=== PATIENT | female | born 1990 | race Caucasian/White ===

== ENCOUNTER 2017-07-04 11:15 | Emergency (ER) | payer MEDICAID, OTHER ==
[2017-07-04 11:51] VITALS: BP 149/68; PULSE 70; RESP 18; TEMP 98; O2SAT 98
--- NOTE | 2017-07-04 13:30 | ED PDOC ---
Upper Extremity Pain/Injury Time Seen by Provider: 07/04/17 12:35 Chief Complaint (Nursing): Upper Extremity Problem/Injury Chief Complaint (Provider): Left Wrist Pain History Per: Patient History/Exam Limitations: no limitations Onset/Duration Of Symptoms: Days (x3) Current Symptoms Are (Timing): Still Present Quality: "Pain" Exacerbating Factor(s): Movement Additional Complaint(s): 27 year old female presents of the ED complaining of left wrist pain x3 days. The patient states that for the p[ats few days she has felt as though she cannot move her hand. 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 Patient states that she has not taken anything for pain and has noticed some swelling to the affected area. Denies trauma, numbness. tingling. Patient states she has taken nothing for pain. PMD: Non [facility] Provider, Past Medical History Reviewed: Historical Data, Nursing Documentation, Vital Signs Vital Signs: Last Vital Signs Temp 98 F 07/04/17 11:45 Pulse 70 07/04/17 11:45 Resp 18 07/04/17 11:45 BP 149/68 07/04/17 11:45 Pulse Ox 98 07/04/17 11:45 - Medical History PMH: Denies: Asthma, HIV, HTN, Peripheral Edema, Chronic Kidney Disease - Surgical History Surgical History: No Surg Hx - Family History Family History: States: Unknown Family Hx - Living Arrangements Living Arrangements: Other - Social History Current smoker - smoking cessation education provided: No Ex-Smoker (has not smoked in the last 12 months): No Alcohol: None Drugs: Denies - Immunization History Hx Tetanus Toxoid Vaccination: Yes Hx Influenza Vaccination: No Hx Pneumococcal Vaccination: No - Home Medications Home Medications: Ambulatory Orders Medication Instructions Recorded No Known Home Med 03/01/16 - Allergies Allergies/Adverse Reactions: Allergies Allergy/AdvReac Type Severity Reaction Status Date / Time amoxicillin Allergy Mild RASH Verified 03/01/16 12:15 naproxen Allergy Mild RASH Verified 03/01/16 12:15 Review of Systems ROS Statement: Except As Marked, All Systems Reviewed And Found Negative Gastrointestinal: Positive for: Other (left wrist pain) Physical Exam - Reviewed Nursing Documentation Reviewed: Yes Vital Signs Reviewed: Yes - Physical Exam Appears: Positive for: Non-toxic, No Acute Distress Head Exam: Positive for: ATRAUMATIC, NORMAL INSPECTION, NORMOCEPHALIC Skin: Positive for: Normal Color, Warm, Dry. Negative for: Rash Eye Exam: Positive for: Normal appearance, EOMI, PERRL. Negative for: Nystagmus Extremity: Positive for: Capillary Refill, Other (Sensations intact). Negative for: Normal ROM (Decreased flexion and extension; Passive ROM limited but it felt as though patient was resisting.), Tenderness, Deformity, Swelling - ECG O2 Sat by Pulse Oximetry: 98 (RA) Pulse Ox Interpretation: Normal Medical Decision Making Medical Decision Makin Initial Impression 27 y/o female presenting with left wrist pain Initial Plan: * Tylenol 650mg PO * RAD Left Wrist * Reevaluation Documented by Magi Gibbons acting as a scribe for Lucia Geronimo PA-C. All medical record entries made by the Scribe were at my direction and personally dictated by me. I have reviewed the chart and agree that the record accurately reflects my personal performance of the history, physical exam, medical decision making, and the department course for this patient. I have also personally directed, reviewed, and agree with the discharge instructions and disposition. Disposition - Patient ED Disposition Is Patient to be Admitted: No - Disposition Disposition: Routine/Home Disposition Time: 13:54 Condition: STABLE Forms: [facility] (Indonesian) - POA Present On Arrival: None
--- NOTE | 2017-07-04 14:45 | RAD ---
PROCEDURE: Left Wrist Radiographs. HISTORY: Left wrsit pain, decreased ROM COMPARISON: None. FINDINGS: BONES: Normal. No fracture. JOINTS: Normal. No dislocation. SOFT TISSUES: Normal. OTHER FINDINGS: None. IMPRESSION: Normal left wrist radiographs.
== END 2017-07-04 14:12 | disposition home or self-care (01) ==
LOC: H.ER 11:15
DX: M25.532 Pain in left wrist (principal)